=== PATIENT | female | born 1990 ===

== ENCOUNTER 2017-10-28 13:22 | Emergency (ER) | payer OTHER ==
[2017-10-28 13:39] VITALS: BMI 32.1
[2017-10-28 13:40] VITALS: O2SAT 100
--- NOTE | 2017-10-28 14:19 | ED PDOC ---
HPI: Female Pain Time Seen by Provider: 10/28/17 13:52 Chief Complaint (Nursing): Abdominal Pain History Per: Patient Onset/Duration Of Symptoms: Days Current Symptoms Are (Timing): Still Present Severity: Mild Pain Scale Rating Of: 2 Quality Of Discomfort: Cramping Additional Complaint(s): Crampy lower abd pain assoc with vaginal bleeding x 1 day. Home preg pos. Approx 3 weeks preg Abnormal Vaginal Bleeding: Yes Past Medical History Vital Signs: Last Vital Signs Temp 98.3 F 10/28/17 13:37 Pulse 93 H 10/28/17 13:37 Resp 16 10/28/17 13:37 BP 139/62 10/28/17 13:37 Pulse Ox 100 10/28/17 13:37 - Medical History PMH: No Chronic Diseases - Family History Family History: States: Unknown Family Hx - Allergies Allergies/Adverse Reactions: Allergies Allergy/AdvReac Type Severity Reaction Status Date / Time No Known Allergies Allergy Verified 10/28/17 13:37 Review of Systems Gastrointestinal: Positive for: Abdominal Pain Genitourinary Female: Positive for: Vaginal Bleeding Musculoskeletal: Positive for: Back Pain Physical Exam - Physical Exam Appears: Positive for: Well, Non-toxic, No Acute Distress Skin: Positive for: Normal Color, Warm, DRY Gastrointestinal/Abdominal: Positive for: Bowel Sounds, Soft. Negative for: Tenderness Pelvic Exam: Positive for: External Exam Normal, No Masses. Negative for: Blood , Discharge, Tender Adnexa, Tender Uterus Extremity: Positive for: Normal ROM - Laboratory Results Result Diagrams: 10/28/17 14:51 10/28/17 14:51 - ECG O2 Sat by Pulse Oximetry: 100 Medical Decision Making Medical Decision Making: Time: 13:56 Plan: - Type and Screen - Beta hCG, Quantitative - CMP - CBC - Transvaginal Ultrasound Disposition - Clinical Impression Clinical Impression: Threatened miscarriage - Patient ED Disposition Is Patient to be Admitted: No Counseled Patient/Family Regarding: Studies Performed, Diagnosis, Need For Followup, Rx Given - Disposition [facility] Disposition: Transfer of Care Disposition Time: 17:12 Condition: FAIR Additional Instructions: Repeat Beta HCG 48 hrs Instructions: Threatened Miscarriage (ED) Forms: [employer] (Japanese)
[2017-10-28 14:57] LABS: BASO # 0.2 K/uL (0.0-0.2); BASO % 1.3 % (0.0-2.0); EOS % 0.1 % (0.0-4.0); HEMOGLOBIN 9.7 g/dL (12.0-16.0); LYMPH % 16.5 % (20.0-40.0); MEAN CORPUSCULAR HEMOGLOBIN 20.9 pg (27.0-31.0); MEAN CORPUSCULAR HGB CONC 30.3 g/dL (33.0-37.0); MEAN PLATELET VOLUME 7.4 fl (7.2-11.7); MONO # 0.5 K/uL (0.0-0.8); MONO % 4.1 % (0.0-10.0); NEUT # 9.6 K/uL (1.8-7.0); RBC 4.62 Mil/uL (3.80-5.20); RED CELL DISTRIBUTION WIDTH 18.4 % (11.5-14.5); WHITE BLOOD COUNT 12.2 K/uL (4.8-10.8)
[2017-10-28 15:09] LABS: ALB/GLOB RATIO 1.2 (1.0-2.1); ALBUMIN 4.4 g/dL (3.5-5.0); ALT/SGPT 57 U/L (9-52); AST/SGOT 25 U/L (14-36); BLOOD UREA NITROGEN 8 mg/dl (7-17); CALCIUM 8.9 mg/dL (8.4-10.2); GFR AFRICAN-AMERICAN > 60; GFR NON-AFRICAN AMERICAN > 60
--- NOTE | 2017-10-28 15:55 | US ---
HISTORY: r/o ectopic COMPARISON: None available. TECHNIQUE: Transvaginal pelvic ultrasound was performed. FINDINGS: UTERUS: Measures 8.1 x 5.9 x 4.3 cm. Anteverted and normal in size. There is a 7 x 10 x 6 mm intramural posterior wall fibroid in the midbody of the uterus. ENDOMETRIUM: Measures 14 mm in diameter. Normal in appearance. CERVIX: No cervical abnormality identified. RIGHT OVARY: Measures 4.8 x 4.3 x 3.0 cm. No solid mass. Normal flow. There is a 1.7 x 2.0 x 1.0 cm simple cyst and a 1.4 x 1.0 x 1.1 cm simple cyst. There is a 2.2 x 2.3 x 1.8 cm hypoechoic lesion with mild increased central vascularity. LEFT OVARY: Measures 2.3 x 3.2 x 2.5 cm. No solid mass. Normal flow. FREE FLUID: No significant free fluid noted. OTHER FINDINGS: None. IMPRESSION: 1. No evidence of intrauterine gestation. 2. 2.3 cm complex lesion with central vascularity in the right ovary is indeterminate and could represent a hemorrhagic/complex cyst. Short-term interval follow-up is recommended to assess stability/resolution. 3. No evidence of adnexal mass or free fluid in the pelvis. Ectopic cannot be entirely excluded. Clinical and imaging follow-up and correlation with serial beta HCG levels is recommended.
--- NOTE | 2017-10-28 17:35 | CP.PCM.CON ---
History of Present Illness - History of Present Illness History of Present Illness: he patient is a 27-year-old 2 para 1 last menstrual period 09/19the patient presents to [facility] complaining of abdominal cramps and vaginal bleeding. Patient states she is concerned she is having a miscarriage Patient states she had a positive HPT Review of Systems - Constitutional Constitutional: As Per HPI - Cardiovascular Cardiovascular: As Per HPI - Respiratory Respiratory: As Per HPI - Gastrointestinal Gastrointestinal: As Per HPI - Reproductive: Female Reproductive:Female: As Per HPI - Menstruation Menstruation: As Per HPI Meds Allergies/Adverse Reactions: Allergies Allergy/AdvReac Type Severity Reaction Status Date / Time No Known Allergies Allergy Verified 10/28/17 13:37 Physical Exam - Head Exam Head Exam: ATRAUMATIC - ENT Exam ENT Exam: Mucous Membranes Moist - Respiratory Exam Respiratory Exam: Clear to Auscultation Bilateral - Cardiovascular Exam Cardiovascular Exam: REGULAR RHYTHM - GI/Abdominal Exam GI & Abdominal Exam: Normal Bowel Sounds Results - Vital Signs Recent Vital Signs: Last Vital Signs Temp 98.3 F 10/28/17 13:37 Pulse 93 H 10/28/17 13:37 Resp 16 10/28/17 13:37 BP 139/62 10/28/17 13:37 Pulse Ox 100 10/28/17 17:14 - Labs Result Diagrams: 10/28/17 14:51 10/28/17 14:51 Labs: Laboratory Results - last 24 hr 10/28/17 10/28/17 10/28/17 14:51 14:51 14:51 WBC 12.2 H RBC 4.62 Hgb 9.7 L Hct 31.9 L MCV 69.0 L MCH 20.9 L MCHC 30.3 L RDW 18.4 H Plt Count 539 H MPV 7.4 Neut % (Auto) 78.0 H Lymph % (Auto) 16.5 L Fannin % (Auto) 4.1 Eos % (Auto) 0.1 Baso % (Auto) 1.3 Neut # 9.6 H Lymph # 2.0 Fannin # 0.5 Eos # 0.0 Baso # 0.2 Sodium 141 Potassium 3.9 Chloride 107 Carbon Dioxide 22 Anion Gap 16 BUN 8 Creatinine 0.5 L Est GFR ( Amer) > 60 Est GFR (Non-Af Amer) > 60 Random Glucose 100 Calcium 8.9 Total Bilirubin 0.2 AST 25 ALT 57 H Alkaline Phosphatase 57 Total Protein 8.1 Albumin 4.4 Globulin 3.7 Albumin/Globulin Ratio 1.2 Beta HCG, Quant 693.46 Blood Type O POSITIVE Antibody Screen Negative BBK History Checked No verified bt Assessment & Plan - Assessment and Plan (Free Text) Assessment: early Beta quantitative 600 Sonogram questionable sepsis cannot rule out endometriosis complex ovarian cyst or ectopic The patient was given the option of expectant management, methotrexate, surgical evaluation. The patient was informed of the risks benefits and alternatives to each mode of therapy. The patient was given the opportunity After our discussion the patient opted for expectant m management. The patient states she will follow-up follow up with her PMD Dr. Kim this week. We discussed signs and symptoms of ectopic pnancy. Patient advised should she have worsening pain she is to return to the emergency room
[2017-10-28 18:04] VITALS: BP 124/75; PULSE 75; RESP 14; TEMP 98
== END 2017-10-28 17:55 | disposition home or self-care (01) ==
LOC: H.ER 13:22
DX: O20.0 Threatened abortion (principal)